=== PATIENT | male | born 1975 | race Caucasian/White ===

== ENCOUNTER 2018-04-23 19:40 | Emergency (ER) | payer OTHER ==
[~2018-04-23] VITALS: Ht 188 cm; Wt 86.2 kg
--- NOTE | ~2018-04-23 | EKG ---
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
--- NOTE | ~2018-04-23 | EKG ---
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
[2018-04-23] MEDS ORDERED: ALTACE10 MG PO (19:45)
[2018-04-23] MEDS ORDERED: LOPRESSOR100 M1 PO (19:46)
[2018-04-23 20:47] LABS: HEMATOCRIT 39.6 % (42.0-52.0); HEMOGLOBIN 13.7 gm/dL (14.0-18.0); MCH 31.7 pg (26.0-34.0); MCHC 34.7 g/dL (28.0-37.0); MCV 91.4 fL (80.0-100.0); RBC 4.34 mil/uL (4.50-6.00); RDW 12.4 % (10.5-14.5)
[2018-04-23 20:51] LABS: ANION GAP 9 mmol/L (7-16); BUN 14 mg/dL (7-18); CALCIUM 9.7 mg/dL (8.5-10.1); CHLORIDE 100 mmol/L (98-107); CO2 25 mmol/L (21-32); CREATININE 1.1 mg/dL (0.7-1.3); GLUCOSE 115 mg/dL (74-106); POTASSIUM 3.4 mmol/L (3.5-5.1); SODIUM 134 mmol/L (136-145)
[2018-04-23 20:59] LABS: ALBUMIN 3.9 g/dL (3.4-5.0); SGOT 59 U/L (15-37); SGPT 87 U/L (30-65); TOTAL BILIRUBIN 0.6 mg/dL (<0.1-1.0); TOTAL PROTEIN 7.8 g/dL (6.4-8.2); TROPONIN-I <0.06 ng/mL (<0.06)
[2018-04-23 23:17] VITALS: BP 143/91
== END 2018-04-23 23:18 | disposition home or self-care (01) ==
LOC: ER 19:40
PROVIDERS: Emergency Medicine
DX: R07.9 Chest pain, unspecified (principal); R42 Dizziness and giddiness; I10 Essential (primary) hypertension; F41.9 Anxiety disorder, unspecified; Z87.891 Personal history of nicotine dependence